=== PATIENT | male | born 1980 | race Caucasian/White ===

== ENCOUNTER 2020-07-08 16:49 | Emergency (ER) | payer MEDICAID, OTHER ==
[~2020-07-08] VITALS: Ht 185.4 cm; Wt 91.5 kg
[2020-07-08] MEDS ORDERED: METHOCARBAMOL 750 MG TABLET ONE (17:38)
[2020-07-08] MEDS ORDERED: KETOROLAC 30 MG/1 ML ONE (17:38)
--- NOTE | 2020-07-08 17:42 | NUR ---
BREAK RN: PT UPRIGHT ON GURNEY AWAKE WITH C/O PAIN, MEDICATED PER EMAR, RESPONDS APPROP TO STAFF, COMFORT MEASURES PROVIDED, CALL LIGHT WITHIN REACH.
[2020-07-08 17:45] LABS: BASOPHILS % (AUTO) 1 % (0-1); EOSINOPHILS % (AUTO) 3 % (1-7); LYMPHOCYTES % (AUTO) 33 % (22-44); MEAN CORPUSCULAR HEMOGLOBIN 30.5 pg (27.5-34.5); MEAN CORPUSCULAR HGB CONC 34.2 g/dL (33.2-36.2); MEAN PLATELET VOLUME 6.9 fL (7.4-10.4); MONOCYTES % (AUTO) 11 % (2-9); NEUTROPHILS % (AUTO) 53 % (42-75); PLATELET COUNT 284 x10^3/uL (130-400); RED BLOOD COUNT 4.72 x10^6/uL (4.38-5.82); RED CELL DISTRIBUTION WIDTH 13.4 % (9.4-14.8)
[2020-07-08 17:52] LABS: MD NO
[2020-07-08 17:59] LABS: ANION GAP 5 mmol/L (5-15); CALCIUM 8.4 mg/dL (8.5-10.1); CHLORIDE 110 mmol/L (98-107)
[2020-07-08] MEDS ORDERED: KETOROLAC 60 MG/2 ML IM ONE (18:00)
[2020-07-08] MEDS ORDERED: METHOCARBAMOL 750 MG TABLET PO ONE (18:00)
[2020-07-08 18:01] LABS: CREATININE 0.78 mg/dL (0.7-1.3)
--- NOTE | 2020-07-08 18:23 | NUR ---
PT CONTINUES TO HAVE PAIN FROM R FOREARM EXTENDING DOWN INTO HAND. ICE PACK PROVIDED. VS OBTAINED, UPDATED IN COMPUTER. PT UPDATED ON POC, INCLUDING ORDER FOR MRI. CALL LIGHT WITHIN REACH.
[2020-07-08 18:56] LABS: HCT (SEDRATE) 42.1 % (39.2-51.8)
--- NOTE | 2020-07-08 19:09 | NUR ---
MRI SCREENING FORM COMPLETED, IN ROOM WITH PATIENT. CONTINUE TO AWAIT MRI AVAILABILITY.
--- NOTE | 2020-07-08 19:27 | NUR ---
PT TO MRI
[2020-07-08] MEDS ORDERED: HYDROmorphone 2 MG/ML, 1ML ONE (19:50)
--- NOTE | 2020-07-08 19:55 | NUR ---
PT UNABLE TO STAY STILL IN MRI, STATES PAIN TOO MUCH. ORDER OBTAINED FROM DR BRYANT AND PT MEDICATED IN MRI.
[2020-07-08] MEDS ORDERED: HYDROmorphone/PF 4 MG/ML, 1ML IM ONE (20:00)
--- NOTE | 2020-07-08 20:33 | NUR ---
DR BRYANT IN TO REASSESS PT. PT TBDC, CALLING FOR RIDE AT THIS TIME.
[2020-07-08 20:59] VITALS: BP 117/75
--- NOTE | 2020-07-08 21:35 | NUR ---
PT AMBULATORY TO DISCHARGE, FAMILY TO GIVE PT RIDE HOME.
== END 2020-07-08 21:37 | disposition home or self-care (01) ==
LOC: ED 18:26
DX: M54.12 Radiculopathy, cervical region (principal); M54.16 Radiculopathy, lumbar region; M54.14 Radiculopathy, thoracic region; F17.200 Nicotine dependence, unspecified, uncomplicated
CPT/HCPCS: 36415; 72141; 73110; 73130; 80048; 82550; 85025; 85651; 96372; 99285; J1170; J1885